=== PATIENT | female | born 2000 | race Caucasian/White ===

== ENCOUNTER 2020-07-23 11:14 | Outpatient (REF) | payer BC, SELFPAY ==
--- NOTE | 2020-07-22 11:00 | PAPFT_PTH ---
PATIENT: CAMPBELL SINHA LOC: [facility] U#:[id number] AGE/SX: 20/F ROOM: RE07/23/[address]: Dejan Weaver : 2000 BED: DIS: 07/23/2020 SPEC #: [id number] RECD: 07/23/20 14:09 STATUS: NELSON RERaphael #: [id number] YEISON: 07/22/20 11:[address]: Dejan Weaver DEPT: [facility] Cytology RECD BY: Dunia Suarez ENTERED: 07/23/20 14:16 SP TYPE: PAPFT OTHR DR: Consuelo Brown MD Tissues: 1 - CX/ENDOCX FOR PAP SMEARS Procedures: PAP THIN PREP/[facility] Screening Comments: [id number]
== END 2020-07-23 11:15 | disposition home or self-care (01) ==
LOC: NCHCN 11:14
PROVIDERS: PCP Pediatrics; Visit Provider Nurse Practitioner Family
DX: Z00.00 Encounter for general adult medical examination without abnormal findings (principal); Z12.4 Encounter for screening for malignant neoplasm of cervix
CPT/HCPCS: 88142